=== PATIENT | male | born 1965 | race Caucasian/White ===

== ENCOUNTER 2020-08-20 16:01 | Outpatient (REF) | payer BC, SELFPAY ==
[2020-08-20 14:14] LABS: BUN 15 mg/dL (7-18); CREATININE 0.8 mg/dL (0.70-1.30); Calcium 9.2 mg/dL (8.5-10.1); Chloride 105 mmol/L (98-107); Glucose 115 mg/dL (74-106); Sodium 141 mmol/L (136-145)
== END 2020-08-20 16:21 ==
LOC: NCHCN 16:01
PROVIDERS: PCP Physician Assistant; Visit Provider Physician Assistant
DX: I10 Essential (primary) hypertension (principal)
CPT/HCPCS: 80048

== ENCOUNTER 2020-11-21 20:17 | Outpatient (REF) | payer BC, SELFPAY ==
[2020-11-21 15:30] LABS: HCT 42.9 % (40.0-50.0); HGB 14.7 g/dL (13.5-17.5); MCH 31.3 pg (27.0-33.0); MCHC 34.3 % (32.0-36.0); MCV 91.3 fL (80-95); MPV 11.5 fL (8.0-11.0); Platelet Count 201 10^3/uL (130-400); RDW 12.3 % (11.8-14.1); RDW-SD 41.7 fL
[2020-11-21 15:47] LABS: Anion Gap 11.3 mmol/L (3-11); BUN 18 mg/dL (7-18); CO2 25.7 mmol/L (21.0-32.0); CREATININE 0.7 mg/dL (0.70-1.30); Calcium 9.2 mg/dL (8.5-10.1); Chloride 106 mmol/L (98-107); Glucose 103 mg/dL (74-106); Potassium 3.9 mmol/L (3.5-5.1); Sodium 143 mmol/L (136-145)
[2020-11-21 22:39] LABS: PSA, Screening 0.3 ng/mL (0.0-3.5)
== END 2020-11-21 20:18 | disposition home or self-care (01) ==
LOC: NCHCN 20:17
PROVIDERS: PCP Physician Assistant; Visit Provider Physician Assistant
DX: I10 Essential (primary) hypertension (principal); Z12.5 Encounter for screening for malignant neoplasm of prostate
CPT/HCPCS: 80048; 84153; 85027

== ENCOUNTER 2021-11-18 09:06 | Outpatient (REF) | payer BC, SELFPAY ==
[2021-11-18 15:43] LABS: Anion Gap 9.1 mmol/L (3-11); BUN 20 mg/dL (7-18); CO2 27.9 mmol/L (21.0-32.0); CREATININE 0.9 mg/dL (0.70-1.30); Calcium 9.2 mg/dL (8.5-10.1); Calculated LDL 101 mg/dL (<100); Chloride 104 mmol/L (98-107); Cholesterol 177 mg/dL (<200); Glucose 103 mg/dL (74-106); HDL Cholesterol 43 mg/dL (40-60); Potassium 3.7 mmol/L (3.5-5.1); Sodium 141 mmol/L (136-145); Triglyceride 166 mg/dL (<150)
[2021-11-18 22:33] LABS: PSA, Screening 0.4 ng/mL (<=3.5)
[2021-11-19 10:43] LABS: HIV-1/2 Ag & Ab Screen Negative (Negative)
[2021-11-19 10:51] LABS: Hepatitis C Ab w Rflx HCV PCR Negative (Negative)
== END 2021-11-18 09:07 | disposition home or self-care (01) ==
LOC: NCHCN 09:06
PROVIDERS: PCP Physician Assistant; Visit Provider Physician Assistant
DX: Z11.4 Encounter for screening for human immunodeficiency virus [HIV] (principal); Z11.59 Encounter for screening for other viral diseases; Z12.5 Encounter for screening for malignant neoplasm of prostate; I10 Essential (primary) hypertension
CPT/HCPCS: 80048; 80061; 84153; 86803; 87389

== ENCOUNTER 2022-11-14 10:17 | Outpatient (REF) | payer BC, SELFPAY ==
[2022-11-14 14:01] LABS: Anion Gap 8.6 mmol/L (3-11); BUN 19 mg/dL (7-18); CO2 28.4 mmol/L (21.0-32.0); Calcium 9.6 mg/dL (8.5-10.1); Calculated LDL 99 mg/dL (<100); Chloride 104 mmol/L (98-107); Cholesterol 181 mg/dL (<200); Glucose 114 mg/dL (74-106); HDL Cholesterol 43 mg/dL (40-60); Potassium 3.8 mmol/L (3.5-5.1); Sodium 141 mmol/L (136-145); Triglyceride 198 mg/dL (<150)
[2022-11-14 14:13] LABS: Hemoglobin A1C 5.2 % (<5.7)
[2022-11-14 23:20] LABS: PSA, Screening 0.4 ng/mL (<=3.5)
== END 2022-11-14 10:18 | disposition home or self-care (01) ==
LOC: NCHCN 10:17
PROVIDERS: PCP Physician Assistant; Visit Provider Physician Assistant
DX: I10 Essential (primary) hypertension (principal); Z13.1 Encounter for screening for diabetes mellitus; Z12.5 Encounter for screening for malignant neoplasm of prostate
CPT/HCPCS: 80048; 80061; 84153; 83036

== ENCOUNTER 2023-11-25 09:03 | Outpatient (REF) | payer BC, SELFPAY ==
[2023-11-25 15:32] LABS: Anion Gap 11.3 mmol/L (3-11); BUN 18 mg/dL (7-18); CO2 27.7 mmol/L (21.0-32.0); Calcium 9.9 mg/dL (8.5-10.1); Calculated LDL 102 mg/dL (<100); Chloride 103 mmol/L (98-107); Cholesterol 186 mg/dL (<200); Estimated GFR 86.16 (mL/min/1.73m2); Glucose 99 mg/dL (74-106); HDL Cholesterol 58 mg/dL (40-60); Potassium 4.2 mmol/L (3.5-5.1); Sodium 142 mmol/L (136-145); Triglyceride 130 mg/dL (<150)
[2023-11-25 23:40] LABS: PSA, Screening 0.6 ng/mL (<=4.5)
== END 2023-11-25 09:04 | disposition home or self-care (01) ==
LOC: NCHCN 09:03
PROVIDERS: PCP Physician Assistant; Visit Provider Physician Assistant
DX: I10 Essential (primary) hypertension (principal); Z12.5 Encounter for screening for malignant neoplasm of prostate
CPT/HCPCS: 80048; 80061; 84153

== ENCOUNTER 2024-12-26 15:20 | Outpatient (REF) | payer BC, SELFPAY ==
[2024-12-26 21:52] LABS: Anion Gap 10.9 mmol/L (3-11); BUN 18 mg/dL (7-18); CO2 27.1 mmol/L (21.0-32.0); CREATININE 0.9 mg/dL (0.70-1.30); Calcium 9.4 mg/dL (8.5-10.1); Chloride 104 mmol/L (98-107); Estimated GFR 97.17 (mL/min/1.73m2); Glucose 92 mg/dL (74-106); Sodium 142 mmol/L (136-145)
[2024-12-27 19:11] LABS: PSA, Screening 0.4 ng/mL (<=4.5)
== END 2024-12-26 15:21 | disposition home or self-care (01) ==
LOC: NCHCN 15:20
PROVIDERS: PCP Physician Assistant; Visit Provider Physician Assistant
DX: I10 Essential (primary) hypertension (principal); Z12.5 Encounter for screening for malignant neoplasm of prostate
CPT/HCPCS: 80048; 84153